=== PATIENT | female | born 1965 | race Caucasian/White ===

== ENCOUNTER 2016-10-30 14:55 | Emergency (ER) | payer OTHER ==
[2016-10-30 15:27] LABS: BASOPHIL 0.4 % (0-2); HCT 40.5 % (37.0-47.0); LYMPHOCYTE 34.4 % (15-48); MCH 30.6 pg (25.0-31.0); MCHC 34.6 g/dL (32.0-36.0); MCV 88.6 fL (78.0-100.0); MONOCYTE 7.1 % (0-12); MPV 10.3 fL (6.0-9.5); NEUTROPHIL 57.1 % (41-80); PLT 269 K/uL (150-400); RBC 4.57 M/uL (4.20-5.40); RDW 13.1 % (11.5-14.0); WBC 6.8 K/uL (4.0-10.5)
[2016-10-30 15:38] LABS: INR 0.92 (0.9-1.2); PTT 29.3 SECONDS (23.2-31.4)
[2016-10-30 15:46] LABS: ALBUMIN 4.8 g/dL (3.5-5.0); BILIRUBIN - TOTAL 0.5 mg/dL (0.1-1.0); CREATININE 0.8 mg/dL (0.5-1.0); GLOBULIN (CALCULATION) 2.9 g/dL (2.2-4.2); MAGNESIUM 1.97 mg/dL (1.40-2.10); POTASSIUM 3.8 mmol/L (3.5-5.1); TOTAL PROTEIN 7.7 g/dL (6.4-8.3)
[2016-10-30 17:34] LABS: CKMB 1.04 ng/mL (0.97-4.94); MYOGLOBIN < 21 ng/mL (26-65); PRO-BNP 65 pg/mL (0-125); TROPONIN T < 0.010 ng/mL
== END 2016-10-30 18:00 | disposition home or self-care (01) ==
LOC: FER 14:55
PROVIDERS: Emergency Medicine
DX: R07.89 Other chest pain (principal)
CPT/HCPCS: 36415; 71010; 80053; 82550; 82553; 83735; 83874; 83880; 84484; 85025; 85610; 85730; 93005

== ENCOUNTER 2020-09-23 12:42 | Emergency (ER) | payer OTHER ==
[~2020-09-23 12:42] MED LIST: CARAFATE S500 MG/TSP PO; FIORICET1 EACH PO; NORCO 5-325 TA1 EACH PO; PHENERGAN25 M1 PO; TRAMADOL HCL50 MG PO; ZANTAC150 MG PO; ZOFRAN4 MG PO
[2020-09-23 14:19] LABS: BASOPHIL 0.5 % (0-2); EOSINOPHIL 0.1 % (0-5); HCT 41.5 % (37.0-47.0); LYMPHOCYTE 12.8 % (15-48); MCH 30.8 pg (25.0-31.0); MCHC 33.7 g/dL (32.0-36.0); MCV 91.4 fL (78.0-100.0); MONOCYTE 2.2 % (0-12); MPV 10.3 fL (6.0-9.5); NEUTROPHIL 84.2 % (41-80); NRBC 0; PLT 259 K/uL (150-400); RBC 4.54 M/uL (4.20-5.40); RDW 12.8 % (11.5-14.0); WBC 8.3 K/uL (4.0-10.5)
[2020-09-23 14:25] LABS: ALBUMIN 4.2 g/dL (3.4-5.0); BILIRUBIN - TOTAL 0.5 mg/dL (0.2-1.0); BUN/CREAT RATIO (CALC) 16.9 RATIO; CREATININE 0.65 mg/dL (0.51-0.95); GLOBULIN (CALCULATION) 3.4 g/dL; POTASSIUM 4.2 mmol/L (3.5-5.1); TOTAL PROTEIN 7.6 g/dL (6.4-8.2)
== END 2020-09-23 15:50 | disposition home or self-care (01) ==
LOC: FER 12:42
PROVIDERS: Nurse Practitioner Family
DX: R51.9 Headache, unspecified (principal); R11.2 Nausea with vomiting, unspecified; G89.29 Other chronic pain; Z79.891 Long term (current) use of opiate analgesic
CPT/HCPCS: 36415; 80053; 85025; J1200; J1885; J2765; J7030

== ENCOUNTER 2021-04-09 16:32 | Emergency (ER) | payer OTHER | END 2021-04-09 19:14 | disposition home or self-care (01) | LOC: FER 16:32 | DX: S90.121A Contusion of right lesser toe(s) without damage to nail, initial encounter (principal); W22.8XXA Striking against or struck by other objects, initial encounter; Y92.009 Unspecified place in unspecified non-institutional (private) residence as the place of occurrence of the external cause | CPT/HCPCS: 73630 ==

== ENCOUNTER 2021-11-26 14:44 | Emergency (ER) | payer OTHER | END 2021-11-26 16:22 | disposition home or self-care (01) | LOC: FER 14:44 | DX: S51.812A Laceration without foreign body of left forearm, initial encounter (principal); Z23 Encounter for immunization; W19.XXXA Unspecified fall, initial encounter; W26.9XXA Contact with unspecified sharp object(s), initial encounter; Y92.009 Unspecified place in unspecified non-institutional (private) residence as the place of occurrence of the external cause | CPT/HCPCS: 90471; 90715 ==

== ENCOUNTER 2022-01-04 09:22 | Emergency (ER) | payer OTHER | END 2022-01-04 10:20 | disposition home or self-care (01) | LOC: FER 09:22 | DX: S02.2XXA Fracture of nasal bones, initial encounter for closed fracture (principal); W20.8XXA Other cause of strike by thrown, projected or falling object, initial encounter; Z28.310 Unvaccinated for COVID-19 | CPT/HCPCS: 99283 ==